=== PATIENT | female | born 1975 | race Caucasian/White ===

== ENCOUNTER 2017-10-30 10:16 | Emergency (ER) | payer BC ==
[2017-10-30 10:32] VITALS: BP 188/100
--- NOTE | 2017-10-30 10:37 | UC ---
General HPI - HPI Summary HPI Summary: PATIENT PRESENTS WITH PROGRESSIVE RIGHT-SIDED FACIAL DROOP THAT STARTED AT MIDNIGHT AND HAS GOTTEN WORSE OVER THE MORNING. RIGHT SIDE OF HER FACE FEELS A BIT TINGLY BUT SHE HAS NO OTHER FOCAL NEUROLOGIC DEFICITS. NO EXTREMITY NUMBNESS, WEAKNESS OR TINGLING. NO CONFUSION. SHE DENIES CHEST PAIN, SHORTNESS OF BREATH, NAUSEA, HEADACHE. SHE DENIES ANY KNOWN RECENT TICK EXPOSURE AND DOES NOT PARTAKE IN OUTDOORSY ACTIVITIES. SHE DOES NOT HAVE PETS. SHE HAS NO KNOWN HISTORY OF HERPES. BASELINE BLOOD PRESSURE IS USUALLY SYSTOLIC IN THE 140S. - History of Current Complaint Chief Complaint: UCGeneralIllness Stated Complaint: FACIAL NUMBNESS Time Seen by Provider: 10/30/17 10:24 Hx Obtained From: Patient Hx Last Menstrual Period: 17 april Onset/Duration: Gradual Onset, Lasting Hours, Still Present Timing: Constant Onset Severity: Moderate Current Severity: Moderate Pain Intensity: 0 - Allergy/Home Medications Allergies/Adverse Reactions: Allergies Allergy/AdvReac Type Severity Reaction Status Date / Time No Known Allergies Allergy Verified 10/30/17 10:20 Home Medications: Home Medications Aspirin TAB* [Aspirin 325 MG TAB*] 325 mg PO ONCE 10/30/17 [History Confirmed ] diphenhydrAMINE HCl [Benadryl Allergy] 25 mg PO ONCE 10/30/17 [History Confirmed 10/30/17] metFORMIN* [Glucophage 500 MG TAB *] 500 mg PO BID 10/30/17 [History Confirmed 10/30/17] PMH/Surg Hx/FS Hx/Imm Hx Endocrine History: Diabetes - Surgical History Surgical History: Yes Surgery Procedure, Year, and Place: appendectomy. oophorectomy. back surgery - Family History Known Family History: Positive: Hypertension Family History: CVA - Social History Alcohol Use: None Substance Use Type: None Smoking Status (MU): Never Smoked Tobacco Review of Systems Constitutional: Negative Respiratory: Negative Cardiovascular: Negative Gastrointestinal: Negative Neurological: Paresthesia, Other - RIGHT FACIAL DROOP All Other Systems Reviewed And Are Negative: Yes Physical Exam Triage Information Reviewed: Yes Appearance: Well-Appearing, No Pain Distress, Well-Nourished Vital Signs: Initial Vital Signs Temp 97.5 F 10/30/17 10:22 Pulse 104 10/30/17 10:22 Resp 18 10/30/17 10:22 BP 188/100 10/30/17 10:22 Pulse Ox 97 10/30/17 10:22 Vital Signs Reviewed: Yes Eyes: Positive: Conjunctiva Clear ENT: Positive: Hearing grossly normal Neck: Positive: Supple, Nontender, No Lymphadenopathy Respiratory Exam: Normal Cardiovascular: Positive: Tachycardia Abdomen Description: Positive: Soft Musculoskeletal: Positive: No Edema Neurological: Positive: Alert, Other: - NEG PRONATOR DRIFT. FINGER TO NOSE INTACT BILATERALLY. HEEL TO VIEYRA INTACT BILATERALLY. RAPID ALTERNATING MVMTS INTACT. 5/5 STRENGTH. RIGHT SIDED FACIAL DROOP Psychological: Positive: Age Appropriate Behavior Skin: Negative: rashes Diagnostics - EKG Cardiac Rate: NL - 96bpm Cardiac Rhythm: Sinus: Normal Ectopy: None ST Segment: Normal Course/Dx - Course Course Of Treatment: PATIENT WITH LIKELY MARX'S [employer]MAN[employer] GRADE 2 BUT GIVEN HER SIGNIFICANTLY ELEVATED BLOOD PRESSURE, FAMILY HISTORY OF STROKE AND LEVEL OF ANXIETY WILL TRANSFER TO [facility] FOR FURTHER EVALUATION. - Differential Dx - Multi-Symptom Provider Diagnoses: RIGHT SIDED FACIAL DROOP. HYPERTENSIVE CRISIS - Physician Notifications Discussed Patient Care With: Radha Huff - TO [facility] BY AMBULANCE Time Discussed With Above Provider: 10:40 Instructed by Provider To: MD Will See In ED Discharge - Sign-Out/Discharge Documenting (check all that apply): Discharge/Admit/Transfer - Discharge Plan Condition: Stable Disposition: [facility] Referrals: Xiomara Krishnamurthy MD [Primary Care Provider] - - Billing Disposition and Condition Condition: STABLE Disposition: [facility]
== END 2017-10-30 10:50 | disposition short-term general hospital (02) ==
LOC: UCEAST 10:16
DX: R29.810 Facial weakness (principal); I10 Essential (primary) hypertension
CPT/HCPCS: 93005; 99203; G0463

== ENCOUNTER 2017-10-30 11:13 | Emergency (ER) | payer BC ==
[2017-10-30] MEDS ORDERED: predniSONE TAB* 20 MG PO ONE (11:49)
[2017-10-30] MEDS ORDERED: ValACYclovir (*) 1 GM TAB PO ONE (11:50)
[2017-10-30 12:16] LABS: Hematocrit 40 % (35-47); Hemoglobin 13.6 g/dl (12.0-16.0); Mean Corpuscular HGB Conc 34 g/dl (31-36); Mean Corpuscular Hemoglobin 30 pg (27-31); Mean Corpuscular Volume 89 fL (80-97); Mean Platelet Volume 7.7 um3 (7.4-10.4); Platelet Count 303 10^3/ul (150-450); Red Blood Count 4.49 10^6/ul (4.0-5.4); Red Cell Distribution Width 14 % (10.5-15); White Blood Count 6.9 10^3/ul (3.5-10.8)
[2017-10-30 12:33] LABS: EGFR Non-African American 114.6 (>60)
[2017-10-30 13:43] VITALS: BP 128/85
--- NOTE | 2017-11-01 13:53 | ED ---
Celestine Johnston Julia, scribed for Roel Melo MD on 10/30/17 at 1148 . Neurological HPI - HPI Summary HPI Summary: This patient is a 42 year old F BIBA to [facility] from [facility] accompanied by her mother and niece with a chief complaint of right sided facial droop and numbness. Pt reports difficulty controlling her lips such as putting on chapstick and keeping mouthwash in her mouth. Patient denies changes in speech , difficult walking or moving extremities, numbness or tingling, aphasia, left eye irritation, and recent rash. She states that her blood pressure was elevated, roughly 188/110, while at . However, she states she does not typically have HTN while at her PCPs (Dr. Krishnamurthy). She states she was very nervous for stroke while at . Extensive FMhx for stroke. PMHx of DM. EMS reports blood glucose of 278. - History of Current Complaint Chief Complaint: EDNeurologicalDeficit Stated Complaint: FACIAL NUMBNESS-SENT F/CC Time Seen by Provider: 10/30/17 11:16 Hx Obtained From: Patient Onset/Duration: Sudden Onset Timing: Constant Neurological Deficit Location: Facial - right Pain Intensity: 0 Pain Scale Used: 0-10 Numeric Character: Numbness/Tingling - right face, Other: - facial droop - Allergy/Home Medications Allergies/Adverse Reactions: Allergies Allergy/AdvReac Type Severity Reaction Status Date / Time No Known Allergies Allergy Verified 10/30/17 10:20 PMH/Surg Hx/FS Hx/Imm Hx Endocrine/Hematology History: Reports: Hx Diabetes Cardiovascular History: Denies: Hx Hypertension - Surgical History Surgery Procedure, Year, and Place: appendectomy. oophorectomy. back surgery Infectious Disease History: No Infectious Disease History: Denies: Traveled Outside the [place] in Last 30 Days - Family History Known Family History: Positive: Hypertension Family History: CVA aunt and uncle - Social History Occupation: Employed Full-time Alcohol Use: None Substance Use Type: Reports: None Smoking Status (MU): Never Smoked Tobacco Review of Systems Negative: Fever, Chills Negative: Erythema Negative: Sore Throat Negative: Chest Pain Negative: Shortness Of Breath, Cough Negative: Abdominal Pain, Vomiting, Nausea Negative: dysuria, hematuria Negative: Myalgia, Edema Negative: Rash Neurological: Negative - aphasia, Other - right facial droop Positive: Numbness - and tingling right face. Negative: Weakness, Slurred Speech All Other Systems Reviewed And Are Negative: Yes Physical Exam - Summary Physical Exam Summary: Constitutional: Well-developed, Well-nourished, Alert. (-) Distressed Skin: Warm, Dry HENT: Normocephalic; Atraumatic, left upper and lower facial paralysis, cannot keep left eye lid shut, left eyebrow does not elevate as much compared to right Eyes: Conjunctiva normal Neck: Musculoskeletal ROM normal neck. (-) JVD, (-) Stridor, (-) Tracheal deviation Cardio: Rhythm regular, rate normal, Heart sounds normal; Intact distal pulses; The pedal pulses are 2+ and symmetric. Radial pulses are 2+ and symmetric. (-) Murmur Pulmonary/Chest wall: Effort normal. (-) Respiratory distress, (-) Wheezes, (-) Rales Abd: Soft, (-) Tenderness, (-) Distension, (-) Guarding, (-) Rebound Musculoskeletal: (-) Edema Lymph: (-) Cervical adenopathy Neuro: Alert, Oriented x3 Psych: Mood and affect Normal Triage Information Reviewed: Yes Vital Signs On Initial Exam: Initial Vitals Temp Pulse Resp BP Pulse Ox 98.5 F 88 16 135/91 96 10/30/17 11:15 10/30/17 11:15 10/30/17 11:15 10/30/17 11:15 10/30/17 11:15 Vital Signs Reviewed: Yes Diagnostics - Vital Signs Vital Signs Temp Pulse Resp BP Pulse Ox 10/30/17 11:15 98.5 F 88 16 135/91 96 - Laboratory Result Diagrams: 10/30/17 12:01 10/30/17 12:01 Lab Statement: Any lab studies that have been ordered have been reviewed, and results considered in the medical decision making process. NIH Scale - NIH Scale Level of Consciousness: Alert/Keenly Responsive Ask Patient the Month and His/Her Age: Both Correct Ask Pt to Open/Close Eyes and Brusher Tender/Release Non-Paretic Hand: Both Correctly Best Gaze (Only Horizontal Eye Movement): Normal Visual Field Testing: No Visual Loss Facial Paresis-Pt to Smile & Close Eyes or Grimace Symmetry: Minor Paralysis Motor Function - Right Arm: No Drift-Holds 10 Seconds Motor Function - Left Arm: No Drift-Holds 10 Seconds Motor Function - Right Leg: No Drift-Holds 10 Seconds Motor Function - Left Leg: No Drift-Holds 10 Seconds Limb Ataxia-Must be out of Proportion to Weakness Present: Absent Sensory (Use Pinprick to Test Arms/Legs/Trunk/Face): Normal Best Language (Describe Picture, Name Items): No Aphasia Dysarthria (Read Several Words): Normal Extinction and Inattention: No Abnormality Total Score: 1 Re-Evaluation - Re-Evaluation 1 Re-Evaluation Time: 12:45 Comment: Pt informed of discharge and instructions from Dr. Krishnamurthy. Course/Dx - Course Course Of Treatment: Pt presents c/o right sided facial droop and tingling from . Despite pt's complaints, PE is indicative of bells palsy symptoms on the left face. PT denies aphasia and extremity weakness. Pt had HTN at , but is not typically hypertensive. Blood glucose was [address] Krishnamurthy, pts PCP, states she will five pt a blood pressure cuff and journal at next visit. She yesy write a prescription for DM supplies, She recommends no changes to DM tx. Pt is instructed to monitor blood glucose on steroids. Pt is provided with demonstrated of glucometer per Dr. Krishnamurthy's request. - Diagnoses Provider Diagnoses: Alegre's palsy, Hyperglycemia - Physician Notifications Discussed Care Of Patient With: Xiomara Krishnamurthy - PCP Time Discussed With Above Provider: 12:55 Instructed by Provider To: Other - will follow up with pt in office Discharge - Sign-Out/Discharge Documenting (check all that apply): Discharge/Admit/Transfer - Discharge Plan Condition: Stable Disposition: HOME Prescriptions: predniSONE TAB* [Deltasone TAB*] 10 mg PO DAILY #52 tab ValACYclovir (*) [Valtrex 1 GM(*)] 1 gm PO TID #21 tab Patient Education Materials: Alegre Palsy (ED), Type 2 Diabetes in Adults (DC) Referrals: Xiomara Krishnamurthy MD [Primary Care Provider] - 1 Week (Follow up with Dr. Krishnamurthy regarding your visit today. ) Additional Instructions: RETURN TO THE EMERGENCY DEPARTMENT FOR CHANGING OR WORSENING SYMPTOMS. The documentation as recorded by the Celestine gaitan Julia accurately reflects the service I personally performed and the decisions made by , Roel Melo MD.
== END 2017-10-30 13:41 | disposition home or self-care (01) ==
LOC: ED 11:13
DX: G51.0 Bell's palsy (principal); R73.9 Hyperglycemia, unspecified
CPT/HCPCS: 36415; 80053; 85027; 99283; A9270-GY; J7512